=== PATIENT | female | born 1990 | race Caucasian/White ===

== ENCOUNTER 2016-12-16 10:05 | Emergency (ER) | payer OTHER ==
[2016-12-16 10:25] VITALS: BP 121/63; PULSE 74; TEMP 98; BMI 33.2
--- NOTE | 2016-12-16 11:45 | PDOC ---
History of Present Illness - General Chief Complaint: Injury Stated Complaint: SWOLLEN RT FOOT Time Seen by Provider: 12/16/16 11:34 History Source: Patient Exam Limitations: No Limitations - History of Present Illness Initial Comments: 12/16/16 11:40 Dropped a heavy can of cheese onto her foot, incurring injury to her right great toe. Used miryam taped, and came for evaluation. Occurred: reports: just prior to arrival, this morning Severity: reports: mild Pain Location: reports: lower extremity (right great toe) Method of Injury: Yes: direct blow Loss of Consciousness: no loss of consciousness Associated Symptoms (Fall): denies symptoms Past History - Travel Traveled outside of the country in the last 30 days: No Close contact w/someone who was outside of country & ill: No - Past Medical History Allergies/Adverse Reactions: Allergies Allergy/AdvReac Type Severity Reaction Status Date / Time No Known Allergies Allergy Verified 12/16/16 10:23 Home Medications: Ambulatory Orders NK [No Known Home Medication] 12/15/15 Asthma: Yes - Psycho/Social/Smoking Cessation Hx Anxiety: No Suicidal Ideation: No Smoking History: Current every day smoker Have you smoked in the past 12 months: No Number of Cigarettes Smoked Daily: 4 Information on smoking cessation initiated: No Hx Alcohol Use: No Drug/Substance Use Hx: No Substance Use Type: None Trauma Specific PMHX - Complaint Specific PMHX Back Injury: No Neck Injury: No Review of Systems - Review of Systems Able to Perform ROS?: Yes Is the patient limited Lithuanian proficient: Yes Constitutional: Yes: Symptoms Reported, See HPI. No: Malaise HEENTM: No: Symptoms Reported Respiratory: No: Symptoms reported Cardiac (ROS): No: Symptoms Reported Musculoskeletal: Yes: Symptoms Reported, Joint Pain (right toe) Integumentary: Yes: Symptoms Reported, See HPI, Bruising Neurological: No: Symptoms reported All Other Systems: Reviewed and Negative *Physical Exam - Vital Signs Last Vital Signs Temp Pulse Resp BP Pulse Ox 98 F 74 18 121/63 100 12/16/16 10:23 12/16/16 10:23 12/16/16 10:23 12/16/16 10:23 12/16/16 10:23 - Physical Exam General Appearance: Yes: Nourished, Appropriately Dressed, Apparent Distress HEENT: positive: CARMELO, Normal ENT Inspection, TMs Normal, Pharynx Normal Neck: positive: Supple Respiratory/Chest: positive: Lungs Clear, Normal Breath Sounds Gastrointestinal/Abdominal: positive: Soft. 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 intact, Fully Oriented, Alert, Normal Mood/ Affect, Normal Response, Motor Strength 11/29 ED Treatment Course - RADIOLOGY Radiology Studies Ordered: Category Date Time Status FOOT-RIGHT [RAD] Stat Radiology 12/16/16 11:39 Ordered Progress Note - Progress Note Progress Note: X-ray negative for fracture, will miryma tape and provide cashew *DC/Admit/Observation/Transfer Diagnosis at time of Disposition: Toe contusion Qualifiers: Encounter type: initial encounter Toe: great toe Damage to nail status: without damage Laterality: right Qualified Code(s): S90.111A - Contusion of right great toe without damage to nail, initial encounter - Discharge Dispostion Disposition: HOME Condition at time of disposition: Stable Admit: No - Patient Instructions Printed Discharge Instructions: DI for Contusion Additional Instructions: Rest, ice to area on and off for 15 minutes 4-6 times a day Avoid heavy lifting or exercise until pain and swelling is resolved or until further directed Keep area highly elevated to reduce swelling Use splints/Bill wrap as directed Followup with orthopedist in one to 2 days if not improving, if significantly improved may wait one week for followup with orthopedist May use ibuprofen 2-200 mg tablets every 6 hours as needed for pain - Post Discharge Activity Work/School Note: Back to Work
== END 2016-12-16 12:34 | disposition home or self-care (01) ==
LOC: JERFT 10:05
DX: S90.111A Contusion of right great toe without damage to nail, initial encounter (principal); W20.8XXA Other cause of strike by thrown, projected or falling object, initial encounter; Y93.89 Activity, other specified; Y92.89 Other specified places as the place of occurrence of the external cause
CPT/HCPCS: 73630-TC-RT; 99281-25

== ENCOUNTER 2017-08-11 07:31 | Emergency (ER) | payer OTHER ==
[2017-08-11 08:01] VITALS: BMI 33.2
--- NOTE | 2017-08-11 08:42 | PDOC ---
History of Present Illness - General History Source: Patient Exam Limitations: No Limitations - History of Present Illness Initial Comments: CHIEF COMPLAINT: 27-year-old afebrile female with no significant past medical history complaining of lower abdominal pain for the past 12 hours. HISTORY OF PRESENT ILLNESS: The patient states that the pain is constant and sharp in nature. She does admit that her last menstrual period was on 2016. She is unsure if she is as she thinks the condom broke the last time. She denies fevers, chills, nausea, vomiting, diarrhea, chest pain, shortness of breath, back pain, abnormal vaginal discharge, dysuria, hematuria. The patient has not taken anything for pain. Vital signs on arrival are notable for pulse of 96. REVIEW OF SYSTEMS: GENERAL/CONSTITUTIONAL: No fever/chills. No weakness. No weight change. HEAD, EYES, EARS, NOSE AND THROAT: No change in vision. No ear pain or discharge. No sore throat. CARDIOVASCULAR: No chest pain or shortness of breath. RESPIRATORY: No cough, wheezing, or hemoptysis. GASTROINTESTINAL: +lower abdominal pain. No nausea, vomiting, diarrhea. GENITOURINARY: No dysuria, frequency, or change in urination. MUSCULOSKELETAL: No joint or muscle swelling or pain. No neck or back pain. SKIN: No rash or easy bruising. NEUROLOGIC: No headache, vertigo, loss of consciousness, or loss of sensation. PHYSICAL EXAM: GENERAL: The patient is awake, alert, and fully oriented, in no acute distress. She is very well appearing and ambulatory. HEAD: Normal with no signs of trauma. ENT: Pupils equal, round and reactive to light, extraocular movements intact, sclera anicteric, conjunctiva clear. Neck supple. LUNGS: Clear to auscultation bilaterally. Normal excursion. No respiratory distress or use of accessory muscles. CV: RRR, S1/S2, no MRG. Cap refill < 2 sec. ABDOMEN: Soft, non-distended, TTP of lower abdomen and pelvis region. No rebound, guarding, rigidity. Negative psoas, obturator and heel jar signs. VAGINAL: Minimal CMT and bilateral adnexal tenderness with manual exam. Os closed. No discharge noted. No lacerations to vaginal canal. EXTREMITIES: Normal range of motion, no edema. NEUROLOGICAL: Normal speech, normal gait. CN II-XII grossly intact. PSYCH: Normal mood, normal affect. SKIN: Warm, dry, normal turgor, no rashes or lesions noted. <Marta Hearn - Last Filed: 08/11/17 14:56> <Rodo Webber - Last Filed: 08/12/17 08:09> - General Chief Complaint: Pain, Acute Stated Complaint: ABD PAIN Time Seen by Provider: 08/11/17 08:41 Past History - Past Medical History Asthma: Yes COPD: No DVT: No - Immunization History Immunization Up to Date: Yes - Suicide/Smoking/Psychosocial Hx Smoking History: Current every day smoker Have you smoked in the past 12 months: No Number of Cigarettes Smoked Daily: 5 Information on smoking cessation initiated: No Hx Alcohol Use: No Drug/Substance Use Hx: No Substance Use Type: None <Marta Hearn - Last Filed: 08/11/17 14:56> <Rodo Webber - Last Filed: 08/12/17 08:09> - Past Medical History Allergies/Adverse Reactions: Allergies Allergy/AdvReac Type Severity Reaction Status Date / Time No Known Allergies Allergy Verified 08/11/17 07:56 Home Medications: Ambulatory Orders NK [No Known Home Medication] 12/15/15 Review of Systems - Review of Systems Able to Perform ROS?: Yes Is the patient limited Russian proficient: No <Marta Hearn - Last Filed: 08/11/17 14:56> *Physical Exam - Vital Signs Last Vital Signs Temp Pulse Resp BP Pulse Ox 98.2 F 96 H 17 129/64 99 08/11/17 07:57 08/11/17 07:57 08/11/17 07:57 08/11/17 07:57 08/11/17 07:57 <Marta Hearn - Last Filed: 08/11/17 14:56> - Vital Signs Last Vital Signs Temp Pulse Resp BP Pulse Ox 98 F 80 16 123/74 98 08/11/17 15:50 08/11/17 15:50 08/11/17 15:50 08/11/17 15:50 08/11/17 15:50 <Rodo Webber - Last Filed: 08/12/17 08:09> ED Treatment Course - LABORATORY CBC & Chemistry Diagram: 08/11/17 09:45 08/11/17 09:45 <Marta Hearn - Last Filed: 08/11/17 14:56> - LABORATORY CBC & Chemistry Diagram: 08/11/17 09:45 08/11/17 09:45 - ADDITIONAL ORDERS Additional order review: 08/11/17 09:45 RBC 4.80 MCV 88.7 MCHC 32.7 RDW 13.4 MPV 10.1 Neutrophils % 72.1 Lymphocytes % 20.5 Monocytes % 6.2 Eosinophils % 0.7 Basophils % 0.5 <Rodo Webber - Last Filed: 08/12/17 08:09> Medical Decision Making - Medical Decision Making A/P: 27 y/o female with lower abdominal/pelvic pain x 12 hours. Concerned for UTI, , ovarian cysts, less likely appendicitis given relatively benign abdominal exam. Plan is as follows: 1. labs 2. UA/culture 3. HCG The patient is refusing pain medication at this time. hcg - negative labs - elevated WBC count without left shift. Will send for transvaginal ultrasound Transvaginal ultrasound IMPRESSION: no evidence of ovarian torsion or acute pathology. Gave patient the results. Repeat abdominal exam reveals negative obturator, psoas, heel jar sign. Patient can jump up and down in the ER without abdominal pain. Will discharge to home. Gave her abd pain precautions and instructed her to return to the ER if she develops fever, intractable vomiting or any other concerning symptoms. The patient verbalizes understanding of all instructions, has no further questions and is awaiting discharge. <Marta Hearn - Last Filed: 08/11/17 14:56> - Medical Decision Making 08/12/17 08:08 The patient was seen and evaluated in conjunction with JOHANNE Hearn under my direct supervision, ancillary studies were reviewed. I agree with the plan as outlined by JOHANNE Hearn . <Rodo Webber - Last Filed: 08/12/17 08:09> *DC/Admit/Observation/Transfer <Marta Hearn - Last Filed: 08/11/17 14:56> <Rodo Webber - Last Filed: 08/12/17 08:09> Diagnosis at time of Disposition: Abdominal pain Qualifiers: Abdominal location: lower abdomen, unspecified Qualified Code(s): R10.30 - Lower abdominal pain, unspecified - Discharge Dispostion Disposition: HOME Condition at time of disposition: Good - Patient Instructions Printed Discharge Instructions: DI for Abdominal Pain-Adult Additional Instructions: Discharge Instructions: -The ultrasound was normal -Please eat a bland diet until symptoms improve -Drink at least 64oz of water daily -Return to the ER immediately if you develop fever, vomiting or worsening of abdominal pain. - Post Discharge Activity Forms/Work/School Notes: Back to Work
[2017-08-11 10:10] LABS: BASO % 0.5 % (0-2.0); EOS % 0.7 % (0-4.5); HEMATOCRIT 42.6 % (32.4-45.2); HEMOGLOBIN 13.9 GM/dL (10.7-15.3); LYMPH % 20.5 % (8-40); MCHC 32.7 g/dl (32.0-36.0); MEAN CELL VOLUME 88.7 fl (80-96); MEAN PLT VOLUME 10.1 fl (7.5-11.1); MONO % 6.2 % (3.8-10.2); NEUT % 72.1 % (42.8-82.8); PLATELET COUNT 285 K/MM3 (134-434); RDW 13.4 % (11.6-15.6); WHITE BLOOD COUNT 13.7 K/mm3 (4.0-10.0)
[2017-08-11 10:24] LABS: URINE APPEARANCE SLCLOUDY; URINE BILIRUBIN NEGATIVE (NEGATIVE); URINE BLOOD NEGATIVE (NEGATIVE); URINE COLOR DKYELLOW; URINE GLUCOSE (UA) NEGATIVE (NEGATIVE); URINE KETONE NEGATIVE (NEGATIVE); URINE LEUK ESTERASE NEGATIVE (NEGATIVE); URINE NITRITE NEGATIVE (NEGATIVE)
[2017-08-11 10:28] LABS: URINE PROTEIN 1+ (NEGATIVE)
[2017-08-11 10:40] LABS: ALBUMIN 4.1 g/dl (3.4-5.0); ALK PHOS 74 U/L (45-117); ANION GAP 8 (8-16); BILIRUBIN,TOTAL 0.5 mg/dL (0.2-1.0); BLOOD UREA NITROGEN 12 mg/dL (7-18); CALCIUM 8.8 mg/dL (8.5-10.1); CHLORIDE 106 mmol/L (98-107); CO2 25 mmol/L (21-32); CREATININE 0.6 mg/dL (0.55-1.02); GLUCOSE,RANDOM 89 mg/dL (74-106); POTASSIUM 3.8 mmol/L (3.5-5.1); SGOT/AST 15 U/L (15-37); SGPT/ALT 26 U/L (12-78); SODIUM 139 mmol/L (136-145); TOT PROT 7.4 g/dl (6.4-8.2)
[2017-08-11 10:55] LABS: EPI CELLS FEW /HPF (FEW); URINE BACTERIA RARE /hpf (NONE SEEN); URINE MUCUS MANY
[2017-08-11 11:39] LABS: HCG,QUALITATIVE URINE NEGATIVE
[2017-08-11 16:24] VITALS: BP 123/74; PULSE 80; TEMP 98
== END 2017-08-11 15:51 | disposition home or self-care (01) ==
LOC: JER 07:31
DX: R10.30 Lower abdominal pain, unspecified (principal); Z87.09 Personal history of other diseases of the respiratory system; F17.210 Nicotine dependence, cigarettes, uncomplicated
CPT/HCPCS: 36415; 76830-TC; 80053; 81003; 81015; 84703; 85025; 87086; 87186; 99283-25

== ENCOUNTER 2018-02-12 13:15 | Emergency (ER) | payer OTHER ==
[2018-02-12 13:26] VITALS: BP 109/73; PULSE 90; TEMP 98.9; BMI 31.2
[2018-02-12] MEDS ORDERED: KETOROLAC TROMETHAMINE 60 MG/2 ML VIAL IM ONE (13:46)
--- NOTE | 2018-02-12 13:46 | PDOC ---
History of Present Illness - General Chief Complaint: Pain Stated Complaint: BACK PAIN Time Seen by Provider: 02/12/18 13:28 History Source: Patient Exam Limitations: No Limitations - History of Present Illness Initial Comments: 02/12/18 14:12 27-year-old female presents to the complaints of worsening low back pain over the past 6 months. Patient states he did not seek medical treatment prior to today has been taking Motrin p.m. with no relief. Patient states pain is worsened with standing and relieved when sitting. Patient denies radiation of pain to the abdomen or lower legs. Patient denies weakness, rash, or swelling. 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 Occurred: reports: other Severity: reports: moderate Pain Location: reports: back Method of Injury: Yes: unknown Loss of Consciousness: no loss of consciousness Associated Symptoms (Fall): denies symptoms Past History - Past Medical History Allergies/Adverse Reactions: Allergies Allergy/AdvReac Type Severity Reaction Status Date / Time No Known Allergies Allergy Verified 02/12/18 13:22 Home Medications: Ambulatory Orders NK [No Known Home Medication] 02/12/18 Asthma: Yes COPD: No DVT: No - Immunization History Immunization Up to Date: Yes - Suicide/Smoking/Psychosocial Hx Smoking History: Current every day smoker Have you smoked in the past 12 months: Yes Number of Cigarettes Smoked Daily: 6 Information on smoking cessation initiated: No Hx Alcohol Use: No Drug/Substance Use Hx: No Substance Use Type: None Patient Lives Alone: No Lives with/in: parents Trauma Specific PMHX - Complaint Specific PMHX Back Injury: No Neck Injury: No Review of Systems - Review of Systems Able to Perform ROS?: No Constitutional: No: Symptoms Reported ABD/GI: No: Symptoms Reported : No: Symptoms Reported Musculoskeletal: Yes: Back Pain. No: Joint Swelling, Muscle Pain, Muscle Weakness, Neck Pain, Joint Stiffness Integumentary: No: Symptoms Reported Neurological: No: Symptoms reported *Physical Exam - Vital Signs Last Vital Signs Temp Pulse Resp BP Pulse Ox 98.9 F 90 18 109/73 98 02/12/18 13:23 02/12/18 13:23 02/12/18 13:23 02/12/18 13:23 02/12/18 13:23 - Physical Exam General Appearance: Yes: Nourished, Appropriately Dressed. No: Apparent Distress HEENT: positive: EOMI, CARMELO, TMs Normal, Pharynx Normal. negative: Pale Conjunctivae Neck: positive: Normal Thyroid, Supple. negative: Tender, Decreased range of motion Respiratory/Chest: positive: Lungs Clear, Normal Breath Sounds. negative: Chest Tender, Respiratory Distress, Accessory Muscle Use Cardiovascular: positive: Regular Rhythm, Regular Rate. negative: Murmur Gastrointestinal/Abdominal: positive: Soft. negative: Tenderness Musculoskeletal: positive: Vertebral Tenderness. negative: CVA Tenderness, Decreased Range of Motion Extremity: positive: Normal Capillary Refill. 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 Normal straight raise. Normal axial loading. ) Medical Decision Making - Medical Decision Making 02/12/18 14:16 Patient complains of chronic low back pain. Patient has not significant medical treatment or had imaging of her back prior to today's visit. Patient had no reproducible pain or acute findings on exam. Patient has a job that requires frequent lifting. Patient was ordered for lumbar x-rays urine of Toradol IM since she had no relief with Motrin PM. 02/12/18 15:07 X-rays negative for acute findings. Patient states moderate relief with Toradol. Will discharge patient home with recommendation to see neurosurgery and 6 tablets of Percocet. *DC/Admit/Observation/Transfer Diagnosis at time of Disposition: Back pain - Discharge Dispostion Disposition: HOME Condition at time of disposition: Improved - Referrals Referrals: Silas Hairston MD, [facility] [Staff Physician] - - Patient Instructions Printed Discharge Instructions: DI for Low Back Pain Additional Instructions: Please take medications as needed for discomfort. Please avoid movement which trigger discomfort. Please also follow up with referred physician. - Post Discharge Activity
[2018-02-12] MEDS ORDERED: KETOROLAC TROMETHAMINE 60 MG/2 ML VIAL ONE (14:11)
== END 2018-02-12 15:14 | disposition home or self-care (01) ==
LOC: JERFT 13:15
PROC: 3E0233Z Introduction of Anti-inflammatory into Muscle, Percutaneous Approach (ICD-10-PCS; principal; 2018-02-12)
DX: M54.5 Low back pain (principal)
CPT/HCPCS: 72070-TC-FY; 72100-TC-FY; 84703; 99281-25

== ENCOUNTER 2018-08-04 16:14 | Emergency (ER) | payer OTHER ==
--- NOTE | 2018-08-04 16:32 | PDOC ---
Rapid Medical Evaluation Chief Complaint: Sore Throat Time Seen by Provider: 08/04/18 16:31 Medical Evaluation: Allergies Allergy/AdvReac Type Severity Reaction Status Date / Time No Known Allergies Allergy Verified 02/12/18 13:22 08/04/18 16:32 I performed a brief in person evaluation. CC: Rash HPI: Pt is a 28 YO female with a hx of a sore throat x 1 day. PE: Skin: Clear Lungs: Clear Heart: RRR MS: Moves all extremities without difficulty Neuro: Alert Psych: Appropriate affect RBS ordered. Pt will go to [facility] for further evaluation. Discharge Disposition - Diagnosis Sore throat - Referrals - Patient Instructions - Post Discharge Activity
[2018-08-04 16:34] VITALS: BP 133/80; PULSE 83; TEMP 98.1; BMI 34.2
[2018-08-04] MEDS ORDERED: DEXAMETHASONE LIQUID 0.5 MG/5 ML 240 ML BULK BOTTLE PO ONE (17:23)
--- NOTE | 2018-08-04 17:23 | PDOC ---
History of Present Illness - General Chief Complaint: Sore Throat Stated Complaint: SORE THROAT Time Seen by Provider: 08/04/18 16:31 Past History - Past Medical History Allergies/Adverse Reactions: Allergies Allergy/AdvReac Type Severity Reaction Status Date / Time No Known Allergies Allergy Verified 08/04/18 16:34 Home Medications: Ambulatory Orders Amoxicillin - [Amoxicillin 500mg Capsule -] 500 mg PO BID #14 capsule 08/04/18 Ibuprofen 800 mg PO TID #30 tablet 08/04/18 Asthma: Yes COPD: No DVT: No - Immunization History Immunization Up to Date: Yes - Suicide/Smoking/Psychosocial Hx Smoking History: Current every day smoker Have you smoked in the past 12 months: Yes Number of Cigarettes Smoked Daily: 5 Information on smoking cessation initiated: No Hx Alcohol Use: No Drug/Substance Use Hx: No Substance Use Type: None *Physical Exam - Vital Signs Last Vital Signs Temp Pulse Resp BP Pulse Ox 98.1 F 83 17 133/80 100 08/04/18 16:32 08/04/18 16:32 08/04/18 16:32 08/04/18 16:32 08/04/18 16:32 Moderate Sedation - Procedure Monitoring Vital Signs: Procedure Monitoring Vital Signs Temperature 98.1 F 08/04/18 16:32 Pulse Rate 83 08/04/18 16:32 Respiratory Rate 17 08/04/18 16:32 Blood Pressure 133/80 08/04/18 16:32 O2 Sat by Pulse Oximetry (%) 100 08/04/18 16:32 *DC/Admit/Observation/Transfer Diagnosis at time of Disposition: Sore throat - Discharge Dispostion Disposition: HOME Condition at time of disposition: Stable Decision to Admit order: No - Referrals Referrals: Ness Cadena MD [Primary Care Provider] - - Patient Instructions Printed Discharge Instructions: DI for Pharyngitis/Tonsillopharyngitis -- Adult Additional Instructions: You were seen for a sore throat today. Your strep testing was negative. A throat culture has been sent. Please take Motrin 800 mg every 8 hours for fever or pain. Do not take more than 3000 mg a day. A prescription for amoxicillin was sent to the pharmacy. Please wait until you receive your culture results to take the medication If you're culture is positive for strep please take the medication If it is negative for strep you do not need to strip picker the medication or take it as it is most likely viral. Keep your follow-up appointment with her doctor for . Return to the ER for difficulty swallowing, increased pain, fever or if you have any changes in your symptoms. - Post Discharge Activity Forms/Work/School Notes: Back to Work
[2018-08-04] MEDS ORDERED: DEXAMETHASONE SOD PHOSPHATE 10 MG/1 ML VIAL ONE (17:26)
== END 2018-08-04 17:34 | disposition home or self-care (01) ==
LOC: JERFT 16:14
DX: J02.9 Acute pharyngitis, unspecified (principal)
CPT/HCPCS: 87070; 87880; 99281-25

== ENCOUNTER 2019-06-09 16:43 | Emergency (ER) | payer OTHER ==
[2019-06-09 17:02] VITALS: BP 119/80; PULSE 87; TEMP 98.1; BMI 36.1
--- NOTE | 2019-06-09 17:02 | PDOC ---
Rapid Medical Evaluation Time Seen by Provider: 06/09/19 17:00 Medical Evaluation: Allergies Allergy/AdvReac Type Severity Reaction Status Date / Time No Known Allergies Allergy Verified 08/04/18 16:34 06/09/19 17:00 I have performed a brief in-person evaluation of this patient. The patient presents with a chief complaint of: tripped and fell landing on rt knee last night, now with pain, bruising and abrasions Pertinent physical exam findings: ambulatory, FROM of rt patella I have ordered the following: none The patient will proceed to the ED for further evaluation. Discharge Disposition - Diagnosis Knee pain - Referrals - Patient Instructions - Post Discharge Activity
--- NOTE | 2019-06-09 17:45 | PDOC ---
History of Present Illness - General Chief Complaint: Injury Stated Complaint: R/KNEE/INJURY Time Seen by Provider: 06/09/19 17:00 - History of Present Illness Initial Comments: 06/09/19 17:41 29-year-old female without comorbidities presents for evaluation of right knee pain after trip and fall last night. Past History - Past Medical History Allergies/Adverse Reactions: Allergies Allergy/AdvReac Type Severity Reaction Status Date / Time No Known Allergies Allergy Verified 06/09/19 17:02 Home Medications: Ambulatory Orders Amoxicillin - [Amoxicillin 500mg Capsule -] 500 mg PO BID #14 capsule 08/04/18 Ibuprofen 800 mg PO TID #30 tablet 08/04/18 Meloxicam [Mobic (Nf) -] 15 mg PO DAILY #30 tablet 03/15/19 Asthma: Yes COPD: No DVT: No - Immunization History Immunization Up to Date: Yes - Psycho Social/Smoking Cessation Hx Smoking History: Never smoked Have you smoked in the past 12 months: Yes Number of Cigarettes Smoked Daily: 5 Information on smoking cessation initiated: No Hx Alcohol Use: No Drug/Substance Use Hx: No Substance Use Type: None Review of Systems - Review of Systems Musculoskeletal: Yes: Joint Pain *Physical Exam - Vital Signs Last Vital Signs Temp Pulse Resp BP Pulse Ox 98.1 F 87 19 119/80 100 06/09/19 17:00 06/09/19 17:00 06/09/19 17:00 06/09/19 17:00 06/09/19 17:00 - Physical Exam Comments: 06/09/19 17:42 Right knee skin color and temperature normal. There is superficial abrasions on the anterior aspect of the right knee just distal to the tibial tubercle. Thighs and calves are soft and nontender full range of motion of the hip knee and ankle no gross sensorimotor deficits or instability neurovascularly intact Medical Decision Making - Medical Decision Making 06/09/19 17:44 Right knee contusion patient bears weight and ambulates without antalgia Discharge - Discharge Information Problems reviewed: Yes Clinical Impression/Diagnosis: Knee pain, Contusion Condition: Stable Disposition: HOME - Admission No - Follow up/Referral Referrals: Zacarias Guzman DO [Staff Physician] - - Patient Discharge Instructions Additional Instructions: Please keep the abrasions clean with soap and water. You may weight-bear as tolerated and follow-up with orthopedic surgery in 1 to 2 days for further evaluation and treatment options. Return to the emergency room for worsening symptoms. - Post Discharge Activity
== END 2019-06-09 17:50 | disposition home or self-care (01) ==
LOC: JERFT 16:43
DX: S80.01XA Contusion of right knee, initial encounter (principal); M25.561 Pain in right knee; W01.0XXA Fall on same level from slipping, tripping and stumbling without subsequent striking against object, initial encounter; Y93.89 Activity, other specified; Y92.89 Other specified places as the place of occurrence of the external cause; Z87.891 Personal history of nicotine dependence
CPT/HCPCS: 99281-25

== ENCOUNTER 2021-02-15 13:46 | Emergency (ER) | payer OTHER ==
[2021-02-15 14:13] VITALS: BP 133/80; PULSE 90; TEMP 98.1; BMI 37.0
== END 2021-02-15 15:52 | disposition home or self-care (01) ==
LOC: JERFT 13:46
DX: J98.01 Acute bronchospasm (principal)
CPT/HCPCS: 71046-TC-FY; 93005; 93010; 99283-25

== ENCOUNTER 2021-10-31 17:30 | Emergency (ER) | payer OTHER ==
[2021-10-31 18:03] VITALS: BP 110/78; PULSE 83; TEMP 98.2; BMI 26.4
== END 2021-10-31 19:30 | disposition home or self-care (01) ==
LOC: JERFT 17:30
DX: Z32.01 Encounter for pregnancy test, result positive (principal)
CPT/HCPCS: 84703; 99282-25

== ENCOUNTER 2022-11-01 05:52 | Emergency (ER) | payer OTHER ==
[2022-11-01 06:15] VITALS: RESP 18; TEMP 98; BMI 31.2
[2022-11-01 08:49] LABS: BASO % 0.7 % (0-2.0); EOS % 2.1 % (0-4.5); HEMATOCRIT 37.6 % (32.4-45.2); HEMOGLOBIN 12.7 GM/dL (10.7-15.3); LYMPH % 28.9 % (8-40); MCH 28.8 pg (25.7-33.7); MCHC 33.7 g/dl (32.0-36.0); MEAN CELL VOLUME 85.6 fl (80-96); MEAN PLT VOLUME 9.6 fl (7.5-11.1); MONO % 6.3 % (3.8-10.2); PLATELET COUNT 289 10^3/uL (134-434); RDW 13.4 % (11.6-15.6); WHITE BLOOD COUNT 12.9 K/mm3 (4.0-10.0)
[2022-11-01 08:56] LABS: CHLORIDE 106 mmol/L (98-107); SODIUM 138 mmol/L (136-145)
[2022-11-01 08:58] LABS: ALBUMIN 3.6 g/dl (3.4-5.0); BLOOD UREA NITROGEN 16.5 mg/dL (7-18); CALCIUM 9.3 mg/dL (8.5-10.1); CO2 29 mmol/L (21-32); GLUCOSE,RANDOM 99 mg/dL (74-106)
[2022-11-01 09:01] LABS: CREATININE 0.7 mg/dL (0.55-1.3); SGOT/AST 15 U/L (15-37); SGPT/ALT 30 U/L (13-61)
[2022-11-01 09:03] LABS: BILIRUBIN,TOTAL 0.3 mg/dL (0.2-1); TOT PROT 6.8 g/dl (6.4-8.2)
[2022-11-01 09:04] LABS: ALK PHOS 67 U/L (45-117); ANION GAP 4 MMOL/L (8-16)
[2022-11-01] MEDS ORDERED: POTASSIUM CHLORIDE TABS 20 MEQ TABLET.ER (FP) PO ONE ×2 (09:22→09:40)
[2022-11-01 12:53] VITALS: BP 130/81; PULSE 76
== END 2022-11-01 12:52 | disposition home or self-care (01) ==
LOC: JERFT 05:52 → JER 05:52 → JERFT 12:52
DX: R22.1 Localized swelling, mass and lump, neck (principal)
CPT/HCPCS: 36415; 70491-TC; 76536-TC; 80053; 84436; 84443; 84479; 85025; 99285-25; Q9967

== ENCOUNTER → 2022-11-27 | Day surgery (SDC) | payer OTHER | END | disposition home or self-care (01) | LOC: JRADIR 10:22 | PROVIDERS: ATTEND Otolaryngology | PROC: 0G9K3ZX Drainage of Thyroid Gland, Percutaneous Approach, Diagnostic (ICD-10-PCS; principal; 2022-11-27) | DX: E04.1 Nontoxic single thyroid nodule (principal) | CPT/HCPCS: 10005; 76942; 88173; 88305-TC ==